=== PATIENT | female | born 1970 | race Caucasian/White ===

== ENCOUNTER → 2017-08-15 | Outpatient (CLI) | payer OTHER | LOC: FIMAGING 14:48 | PROVIDERS: ATTEND Internal Medicine | DX: N64.4 Mastodynia (principal) | CPT/HCPCS: G0204 ==

== ENCOUNTER → 2018-10-17 | Outpatient (CLI) | payer OTHER | LOC: FIMAGING 14:44 | DX: Z12.31 Encounter for screening mammogram for malignant neoplasm of breast (principal) ==